=== PATIENT | male | born 1990 | race Caucasian/White ===

== ENCOUNTER → 2019-04-21 | Outpatient (CLI) | payer BC | LOC: LL.CLIN 15:30 | PROVIDERS: ATTEND Nurse Practitioner | DX: A64 Unspecified sexually transmitted disease (principal); F32.9 Major depressive disorder, single episode, unspecified; R45.4 Irritability and anger | CPT/HCPCS: 87491; 87591 ==

== ENCOUNTER 2020-07-27 03:35 | Emergency (ER) | payer BC | END 2020-07-27 03:59 | disposition home or self-care (01) | LOC: LL.ED 03:35 | DX: Z53.21 Procedure and treatment not carried out due to patient leaving prior to being seen by health care provider (principal) | CPT/HCPCS: 36415; 80307 ==

== ENCOUNTER 2021-04-18 06:18 | Emergency (ER) | payer BC, OTHER ==
[2021-04-18] MEDS: Bupivacaine 0.5% 10 ML SDV INJECT ONE (06:50)
[2021-04-18] MEDS: Cephalexin 250 MG Cap PO ONE (07:28)
[2021-04-18] MEDS: Bacitracin Oint 1 GM U/D Packet TOP ONE (07:28)
[2021-04-18] MEDS: Diphtheria,Pertussis(Acell),Tetanus Vaccine 0.5 ML Syringe IM ONE (07:29)
--- NOTE | 2021-04-18 07:43 | EDM.PDOC ---
ED HPI GENERAL MEDICAL PROBLEM - General Chief Complaint: Upper Extremity Injury/Pain Stated Complaint: Finger injury Time Seen by Provider: 04/18/21 06:45 Source of Information: Reports: Patient History Limitations: Reports: No Limitations - History of Present Illness INITIAL COMMENTS - FREE TEXT/NARRATIVE: Patient comes emergency department today with complaints of an injury to his right hand. Just prior to arrival the patient was at work at [employer] when he got his right hand crushed in a piece of machinery at work. Subsequently amputated the distal tip of his right fourth finger. He also has pain at the mid aspect of the right fifth metacarpal. He denies any other injury to the hand. He is unsure of when his last tetanus shot was. This happened just prior to arrival about 530 this morning. Treatments [employer]: Reports: Dressing(s) Right Finger-Ring Pain Score (Numeric/FACES): 7 - Related Data Allergies Allergy/AdvReac Type Severity Reaction Status Date / Time No Known Allergies Allergy Verified 07/27/20 03:36 Home Meds: Home Meds . [No Known Home Meds] 04/19/18 [History] Past Medical History - Past Health History Medical/Surgical History: Denies Medical/Surgical History Social & Family History - Caffeine Use Caffeine Use: Reports: Soda - Alcohol Use Days Per Week of Alcohol Use: 1 Number of Drinks Per Day: 2 Total Drinks Per Week: 2 - Recreational Drug Use Recreational Drug Use: No Review of Systems - Review of Systems Review Of Systems: Comprehensive ROS is negative, except as noted in HPI. ED EXAM, GENERAL - Physical Exam Exam: See Below Exam Limited By: No Limitations General Appearance: Alert, WD/WN, No Apparent Distress Ears: Normal External Exam Nose: Normal Inspection Throat/Mouth: Normal Inspection Respiratory/Chest: No Respiratory Distress Cardiovascular: Normal Peripheral Pulses, Regular Rate, Rhythm Peripheral Pulses: 2+: Radial (L), Radial (R) Extremities: Normal Capillary Refill. No: Normal Inspection (On the right fourth finger at the base of the cuticle on the distal phalange E there is a complete amputation. There is bone exposed. No active bleeding. Tenderness to the right fifth metacarpal without any breaks in the skin. Rest of the hand is atraumatic) Neurological: Alert, Oriented, Normal Cognition, Normal Gait, No Motor/Sensory Deficits Psychiatric: Normal Affect, Normal Mood Skin Exam: Intact, Cool, Diaphoretic, Pallor ED TRAUMA EXTREMITY PROCEDURES - Splinting Right Upper Extremity Splint Site: Right hand wrist Pre-Procedure NV Status: Normal Post-Procedure NV Status: Normal Splint Material: Fiberglass Splint Design: Volar Applied & Form Fitted By: Provider Provider Post-Splint Application NV Check: NV Status Normal, Good Position Course - Vital Signs Last Recorded V/S: Last Vital Signs Temp 97.5 F 04/18/21 06:19 Pulse 73 04/18/21 07:59 Resp 16 04/18/21 07:59 BP 134/91 H 04/18/21 07:59 Pulse Ox 99 04/18/21 07:59 - Orders/Labs/Meds Orders: Active Orders 24 hr Category Date Time Status Vaccine to be Administered/Admin Charge [RC] ASDIRECTED Care 04/18/21 07:22 Active Hand Comp Min 3V Rt [CR] Stat Exams 04/18/21 06:29 Taken Meds: Medications Discontinued Medications Generic Name Dose Route Start Last Admin Trade Name Lynda PRN Reason Stop Dose Admin Hydrocodone Bitart/Acetaminophen 1 tab 04/18/21 07:44 04/18/21 08:01 Acetaminophen/Hydrocodone 325-5 Mg Tab PO 04/18/21 07:45 1 tab ONETIME ONE Administration Bacitracin 1 dose 04/18/21 07:20 04/18/21 07:28 Bacitracin Oint 1 Gm U/D Packet TOP 04/18/21 07:21 1 dose ONETIME ONE Administration Bupivacaine HCl 10 ml 04/18/21 06:49 04/18/21 06:50 Bupivacaine 0.5% 10 Ml Sdv INJECT 04/18/21 06:50 10 ml ONETIME ONE Administration Cephalexin 1,000 mg 04/18/21 07:00 04/18/21 07:28 Cephalexin 250 Mg Cap PO 04/18/21 07:01 1,000 mg ONETIME ONE Administration Diphtheria/Tetanus/Acell Pertussis 0.5 ml 04/18/21 07:22 04/18/21 07:29 Diphtheria,Pertussis(Acell),Tetanus Vaccine 0.5 Ml Syringe IM 04/18/21 07:23 0.5 ml .ONCE ONE Administration Ibuprofen 600 mg 04/18/21 07:44 04/18/21 08:02 Ibuprofen 600 Mg Tab PO 04/18/21 07:45 600 mg ONETIME ONE Administration Lidocaine HCl 5 ml 04/18/21 06:49 04/18/21 06:50 Lidocaine 1% 5 Ml Sdv INJECT 04/18/21 06:50 5 ml ONETIME ONE Administration - Radiology Interpretation Free Text/Narrative:: Of the right hand initially reviewed extemporaneously by myself shows an amputation at the proximal distal phalanges of the fourth digit. No foreign material that is radiopaque identified. Also there is a subtle nondisplaced fracture at the base of the right fifth metacarpal radiological review to follow. X-ray per radiology shows an amputation at the level of the distal tuft fourth digit with overlying soft tissue irregularity. No radiopaque foreign body noted. Remote fracture proximal fifth metacarpal. - Re-Assessments/Exams Free Text/Narrative Re-Assessment/Exam: 04/18/21 07:48 Risk and benefits of a digital block were explained to the patient. Verbal con sent was obtained. 1% lidocaine without epinephrine and 0.5% bupivacaine were mixed in a 50-50 fashion. At the base of the right fourth finger the area was cleansed with Betadine and allowed to dry the appropriate time period. I then injected 2.5 mils of the above solution medially and laterally at the base of the finger without any blood withdrawn prior to injection. The patient tolerated the procedure well. Hemostasis was obtained spontaneously. Patient was given Keflex 1 g p.o. Tetanus updated. I explained that the aspect of the finger is not salvageable for the amputation although he is right-handed he was still have most of the function of his fourth finger of his right hand. He is comfortable without reattachment and I do not think that this would be appropriate anyways. The distal finger was cleansed with chlorhexidine and sterile saline. Bacitracin Xeroform dressing and tube gauze was applied. I also informed him about the fracture at the base of his right fifth metacarpal that is not displaced. The patient was placed with a stockinette batting and short arm wrist hand splint in the volar position in the position of neutral. CMS was intact after application. Ibuprofen hydrocodone orally. I called and spoke with Dr. Mamadou Robledo at [facility] in [place]. HPI ER COURSE findings and concerns were relayed to him verbally over the phone. He accepted the patient in transfer at this time and no new orders or directions. The patients mother did come to the ED and will give the patient a ride to the hospital at [facility] in [place]. He was given a full liquid breakfast in the ED and will be NPO after that as surgery will be aprox 4-5pm today. He is aware to keep NPO after he leaves the ED. His questions were answered and he is comfortable with this plan. Departure - Departure Time of Disposition: 07:45 Disposition: DC/Tfer to Acute Hospital 02 Clinical Impression: Fracture of metacarpal bone Qualifiers: Encounter type: initial encounter Metacarpal bone: fifth Fracture type: closed Metacarpal location: base Fracture alignment: nondisplaced Laterality: right Qualified Code(s): S62.346A - Nondisplaced fracture of base of fifth metacarpal bone, right hand, initial encounter for closed fracture Amputation of finger without complication Qualifiers: Encounter type: initial encounter Qualified Code(s): S68.119A - Complete traumatic metacarpophalangeal amputation of unspecified finger, initial encounter - Discharge Information Referrals: PCP,Unknown [Primary Care Provider] - Forms: ED Department Discharge, Interfacility Transfer EMTALA Additional Instructions: From the ED in [place] go directly to [facility] in [place]. The new [place] on the [address] CDU unit. NOTHING TO EAT OR DRINK AFTER YOU LEAVE HERE. Keep the splint on do not get it wet. Plan for surgery this afternoon with Dr. Robledo. Sepsis Event Note (ED) - Focused Exam Vital Signs: Vital Signs Temp Pulse Resp BP Pulse Ox 04/18/21 07:59 73 16 134/91 H 99 04/18/21 06:19 97.5 F 80 12 85/60 L 100 - My Orders Last 24 Hours: My Active Orders 04/18/21 06:29 Hand Comp Min 3V Rt [CR] Stat 04/18/21 07:22 Vaccine to be Administered/Admin Charge [RC] ASDIRECTED - Assessment/Plan Last 24 Hours: My Active Orders 04/18/21 06:29 Hand Comp Min 3V Rt [CR] Stat 04/18/21 07:22 Vaccine to be Administered/Admin Charge [RC] ASDIRECTED
[2021-04-18] MEDS: Acetaminophen/HYDROcodone 325-5 MG Tab PO ONE (08:01)
[2021-04-18] MEDS: Ibuprofen 600 MG Tab PO ONE (08:02)
== END 2021-04-18 08:40 ==
LOC: LL.ED 06:18
DX: S62.346A Nondisplaced fracture of base of fifth metacarpal bone, right hand, initial encounter for closed fracture (principal); S68.114A Complete traumatic metacarpophalangeal amputation of right ring finger, initial encounter; Z23 Encounter for immunization; W23.0XXA Caught, crushed, jammed, or pinched between moving objects, initial encounter; Y99.0 Civilian activity done for income or pay
CPT/HCPCS: 29125; 73130-RT; 90471; 90715; 99283; 99284; A9270-GY; J3490

== ENCOUNTER 2021-07-10 09:08 | Emergency (ER) | payer OTHER | END 2021-07-10 10:40 | disposition home or self-care (01) | LOC: LL.ED 09:08 | DX: S60.221A Contusion of right hand, initial encounter (principal); W23.0XXA Caught, crushed, jammed, or pinched between moving objects, initial encounter | CPT/HCPCS: 73130-RT; 99283 ==